=== PATIENT | female | born 1940 | race Caucasian/White ===

== ENCOUNTER 2019-06-21 06:35 | Inpatient (IN) | payer BC ==
[2019-06-13 15:46] VITALS: BMI 35.2
[~2019-06-21 06:35] MED LIST: VANCOMYCIN 1,000 MG VIAL (RESTRICTED TO ID ONLY) IVPB ONE
[2019-06-21] MEDS ORDERED: CEFAZOLIN 3 GM in DEXTROSE 5%-WATER - 50 ML IVPB ONE (07:22)
[2019-06-21] MEDS ORDERED: TRANEXAMIC ACID 1000 MG/10 ML VIAL IVPUSH ONE (07:22)
[2019-06-21] MEDS ORDERED: VANCOMYCIN 1,000 MG VIAL (RESTRICTED TO ID ONLY) ONE (07:23)
[2019-06-21] MEDS ORDERED: ceFAZolin SODIUM 1 GM VIAL ONE (07:23)
[2019-06-21] MEDS ORDERED: TRANEXAMIC ACID 1000 MG/10 ML VIAL ONE (07:56)
[2019-06-21] MEDS ORDERED: PROPOFOL 20 ML ONE (07:56)
[2019-06-21] MEDS ORDERED: MIDAZOLAM HCL 2 MG/2 ML SINGLE DOSE VIAL ONE ×2 (07:56→07:57)
[2019-06-21] MEDS ORDERED: BUPIVACAINE LIPOSOME/PF (EXPAREL) 266 MG/20 ML VIAL ONE (07:57)
[2019-06-21] MEDS ORDERED: SODIUM CHLORIDE 0.9% P/F 10 ML VIAL IJ ONE (07:58)
--- NOTE | 2019-06-21 08:03 | HP ---
[facility] - Chief Complaint Chief Complaint: left knee pain - Past Medical History Allergies/Adverse Reactions: Allergies Allergy/AdvReac Type Severity Reaction Status Date / Time aspirin Allergy Verified 08/28/14 06:47 Penicillins Allergy Verified 08/28/14 06:47 Sulfa (Sulfonamide Allergy Verified 08/28/14 06:47 Antibiotics) - Current Medications Current Medications: Home Medications Medication Instructions Recorded Calcium 500 mg PO DAILY 08/09/14 Cyanocobalamin (Vitamin B-12) 1,000 mcg PO DAILY 08/09/14 [Vitamin B-12] Levothyroxine [Synthroid -] 125 mcg PO DAILY 08/09/14 Losartan Potassium 100 mg PO DAILY 08/09/14 Multivitamins [Multivit ([facility] 1 tab PO DAILY 08/09/14 Formulary)] Pravastatin Sodium 10 mg PO HS 08/09/14 Salmeterol/Fluticasone [Advair 1 inh IH BID 08/09/14 500Mcg/50Mcg -] Sitagliptin Phosphate [Januvia] 100 mg PO DAILY 08/09/14 metFORMIN HCL [Glucophage] 1,000 mg PO BID 08/09/14 Cyclosporine [Restasis] 1 each OP DAILY 06/13/19 Ferrous Sulfate [Feosol] 325 mg PO HS 06/21/19 Satellite Physical Exam - Physical Examination Vital Signs: Vital Signs Period Temp Pulse Resp BP Sys/Jensen Pulse Ox Last 24 Hr 98 F 66 18 148/80 General Appearance: Well Nourished, Well Developed, Alert & Oriented x3 ENT: Clear Lung: Normal air movement Heart: Regular rate & rhythm Extremities: Other (left knee- + swelling, + ttp, decr rom, nvi, xrays show grade 4 tricompartmental djd) Neurological: Intact, Alert, Oriented Satellite Impression/Plan - Impression/Plan Impression: left knee djd Operative Procedure: left erick tkr Date to be Performed: 06/21/19
[2019-06-21] MEDS ORDERED: ceFAZolin SODIUM 1 GM VIAL IVPB ONE (09:35)
[2019-06-21] MEDS ORDERED: MAGNESIUM HYDROX 2400MG/30ML ORAL SUSPENSION 30 ML CUP PO PRN (09:42)
[2019-06-21] MEDS ORDERED: ONDANSETRON 4 MG/2 ML VIAL IVPUSH PRN ×2 (09:42→11:56)
[2019-06-21] MEDS ORDERED: MAG HYDROX/AL HYDROX/SIMETH 30 ML UNIT-DOSE CUP PO PRN (09:42)
[2019-06-21] MEDS ORDERED: LACTATED RINGERS SOLUTION 1,000 ML IV SCH ×2 (09:45→12:00)
[2019-06-21] MEDS ORDERED: PATIENT'S OWN MEDICATION (NON-FORMULARY) (Losartan Potassium [Losartan Potassium] 100 MG) PO SCH (10:00)
[2019-06-21] MEDS ORDERED: MULTIVITAMINS (DAILY MVI) TABLET (FP) PO SCH (10:00)
[2019-06-21] MEDS ORDERED: PATIENT'S OWN MEDICATION (NON-FORMULARY) (Salmeterol/Fluticasone [Advair 500mcg/50mcg -] 1 IH SCH (10:00)
[2019-06-21] MEDS ORDERED: ENOXAPARIN NA (PORCINE) 40 MG/0.4 ML DISP.SYRIN SQ SCH (10:00)
[2019-06-21] MEDS ORDERED: PATIENT'S OWN MEDICATION (NON-FORMULARY) (Metformin Hcl [Glucophage] 1,000 MG) PO SCH (10:00)
[2019-06-21] MEDS ORDERED: PATIENT'S OWN MEDICATION (NON-FORMULARY) (Cyclosporine [Restasis] 1 EACH) OP SCH (10:00)
[2019-06-21] MEDS ORDERED: VANCOMYCIN 1,000 MG VIAL (RESTRICTED TO ID ONLY) IVPB ONE (10:37)
[2019-06-21] MEDS ORDERED: oxyCODONE HCL 5 MG TABLET PO PRN (11:56)
[2019-06-21] MEDS ORDERED: ACETAMINOPHEN 1000 MG/100 ML VIAL (NON FORMULARY) IVPB ONE (11:57)
--- NOTE | 2019-06-21 12:35 | OP ---
Operative Note - Note: Operative Date: 06/21/19 (jc) Pre-Operative Diagnosis: left knee djd Operation: left erick tkr Post-Operative Diagnosis: Same as Pre-op Surgeon: Owen Rondon Knife Glazer: Dwayne Armas Anesthesiologist/HVAC ENGINEER: Freddie Castellano Anesthesia: Spinal, Local Specimens Removed: bone fragments Estimated Blood Loss (mls): 100 Operative Report Dictated: Yes
[2019-06-21] MEDS: INSULIN SLIDING SCALE (NOVOLOG) 1 VIAL SQ SCH ×4 (14:08→21:55)
[2019-06-21] MEDS: SENNOSIDES/DOCUSATE COMBO (SENNA PLUS) TABLET (UD) PO SCH ×2 (14:08→21:32)
[2019-06-21] MEDS: PANTOPRAZOLE 40 MG TABLET (FP) PO SCH (14:08)
[2019-06-21] MEDS: oxyCODONE HCL 5 MG TABLET PO PRN (14:25)
[2019-06-21] MEDS ORDERED: KETOROLAC TROMETHAMINE 30 MG/1 ML VIAL IVPUSH ONE (15:42)
[2019-06-21] MEDS ORDERED: HYDROmorphone HCL CARPU-JECT 1 MG/1 ML DISP.SYRIN IVPB ONE (15:42)
[2019-06-21] MEDS: metFORMIN HCL 500 MG TABLET (FP) PO SCH (16:56)
[2019-06-21] MEDS: ceFAZolin SODIUM 1 GM VIAL IVPB SCH (17:49)
[2019-06-21] MEDS ORDERED: CEFAZOLIN 3 GM in DEXTROSE 5%-WATER - 50 ML IVPB SCH (18:00)
--- NOTE | 2019-06-21 19:09 | SPEC ---
DATE OF OPERATION: 06/21/2019 PREOPERATIVE DIAGNOSIS: Degenerative joint disease, left knee. POSTOPERATIVE DIAGNOSIS: Degenerative joint disease, left knee. PROCEDURE: Left total knee replacement with robotic-assisted navigation (Makoplasty). SURGICAL ATTENDING: Owen Rondon MD CELL ATTENDANT: ESTELITA Noyola ANESTHESIA: Regional and spinal. CLOSURE: A Triathlon knee system cemented with a 4 femur, 4 tibia, 9 polyethylene, 35 patella, No. 1 Vicryl fascia, 0 and 2-0 subcutaneous, 3-0 Monocryl subcuticular with skin glue for skin, 4-0 undyed Vicryl for pin sites. ESTIMATED BLOOD LOSS: Less than 100 mL. COMPLICATIONS: None. CONDITION: To recovery room in stable condition. DESCRIPTION OF OPERATIVE PROCEDURE: Patient was taken to the operating room on June 21, 2019. Regional and general anesthesia was administered by the anesthesiologist. IV Kefzol and TXA were administered by the anesthesiologist. Well-padded pneumatic tourniquet was placed on the proximal thigh. The left lower extremity was prepped and draped in the usual sterile fashion. The leg was exsanguinated with an Esmarch bandage, and tourniquet was inflated to 275 mmHg. A 12- to 15-cm longitudinal midline incision was incised while centered over the patella. The dissection was carried down to the level of the extensor mechanism with sufficient flaps made to adequately perform the procedure. A medial parapatellar arthrotomy was then performed. We made a cuff of tissue on the patella for later closure. The patella was inverted, the knee was flexed up. The fat pad was excised. The subperiosteal dissection was on the anteromedial proximal tibia around towards the direction of the MCL. The ACL and the PCL were transected and debrided. The meniscal remnants of the medial and lateral meniscus were debrided and removed. This allowed the knee to be able to "be brought forward." The checkpoints were malleted into the tibia and into the femur. Two threaded pins were drilled anteroposteriorly proximal to the knee through the previous incision, through the anterior cortex, then just engaging the posterior cortex. To these pins was assembled the femoral navigation array. One handbreadth below the tibial tubercle, 2 stab incisions were used to drill 2 threaded pins in parallel fashion into the tibia, again through the anterior cortex and just engaging the posterior cortex. To these pins was fastened the tibial arrays. The knee was then registered with the navigation device with center of rotation of the hip, medial and lateral malleoli, both checkpoints, and multiple points on both the femur and the tibia to ensure excellent registration. The navigation device was directed off the "top of the bubbles" on both the femur and the tibia. The navigation passed within less than 0.5 mm to plan. The knee was then thoroughly inspected to remove all osteophytes both medially, laterally, and on the femur and the tibia, and whatever osteophytes were available for dissection. The knee was then taken to extension and to flexion and stressed in both varus and valgus to assess flexion gaps. The virtual position of the components on the navigation device were then manipulated to optimize the position and to ensure equal gaps in both flexion and extension, and both medially and laterally. The robot was then brought into the field and was registered. The cuts were then made both on the femur and on the tibia as to plan. All osteophytes posteriorly were then removed as well. The gaps were then measured again in flexion and extension to be equal in both flexion and extension and medial and laterally. The femoral notch was then made, as we were doing a posterior stabilizing component, with the appropriate sized box. Trial reduction of the femur achieved excellent [id number] fit. A tibial baseplate of appropriate polyethylene thickness was "floated in the knee." It was ensured to be in the excellent position by navigation devices and was pinned in place. The knee was taken through a range of motion and found to have excellent stability throughout flexion and extension. The patella was calibrated for thickness and osteotomized down to the appropriate level. The appropriate lollipop was used to drill the lug holes in the patella and the trial button was applied. The knee was taken through a range of motion and found to have excellent tracking of the patella, and patella from full extension to full flexion. Trial components were removed, the keel was punched and drilled, and a sclerotic bone on the tibia was drilled to help with cement interdigitation. The knee was thoroughly irrigated with the pulse antibiotic civil rights investigator. The real components were then cemented in using monitored arrangement cement techniques with antibiotic cement, and pressurization and extension. After the cement was hardened, the knee was thoroughly inspected to remove any extra cement. The real polyethylene component was then clipped into place. Range of motion, stability, and tracking were as described earlier. The checkpoints and the pins were removed. The knee was thoroughly irrigated with antibiotic irrigation. Vancomycin powder was placed into the knee for antibiotic prophylaxis. The medial parapatellar arthrotomy was then closed using number 1 Vicryl interrupted suture. After closure of the deep layer, the knee was taken through a range of motion, and found to have excellent stability of the patella with no dislocation and no undue tension on the repair. The subcutaneous was pulse antibiotic irrigated, and was then closed with 2-0 Vicryl, 3-0 Monocryl subcuticular with the skin glue for the skin. The distal tibial pin site was irrigated thoroughly as well and then closed with 4-0 undyed Vicryl. A sterile Aquacel dressing was applied, followed by a Leung dressing. Tourniquet was deflated. Total tourniquet time was approximately 75 minutes. No complications. Patient was awakened from anesthesia and transferred to recovery room in stable condition. Postoperative x-rays revealed excellent position of the components. Yeni [id number]
[2019-06-21] MEDS ORDERED: PT OWN MED DRAWER 7, Y5N ONE (21:07)
[2019-06-21] MEDS: oxyCODONE HCL 10 MG SUSTAINED ACTING TABLET PO SCH (21:31)
[2019-06-21] MEDS: ATORVASTATIN CA 10 MG TABLET (FP) PO SCH (21:31)
[2019-06-21] MEDS: FERROUS SO4 325 MG TABLET (FP) PO SCH (21:31)
[2019-06-21] MEDS: BUDESONIDE/FORMETEROL FUMARATE 160/4.5 mcg INHALER IH SCH (21:33)
[2019-06-21] MEDS ORDERED: INSULIN (NOVOLOG) ASPART 100 UNITS/ML 10ML VIAL ONE (21:52)
[2019-06-21] MEDS ORDERED: PATIENT'S OWN MEDICATION (NON-FORMULARY) (Pravastatin Sodium [Pravastatin Sodium] 10 MG) PO SCH (22:00)
[2019-06-22] MEDS: ceFAZolin SODIUM 1 GM VIAL IVPB SCH (01:28)
[2019-06-22] MEDS: oxyCODONE HCL 5 MG TABLET PO PRN ×4 (05:48→18:32)
[2019-06-22] MEDS: metFORMIN HCL 500 MG TABLET (FP) PO SCH ×2 (06:10→17:02)
[2019-06-22] MEDS: sitaGLIPtin PHOSPHATE 50 MG TABLET PO SCH (06:11)
[2019-06-22] MEDS: INSULIN SLIDING SCALE (NOVOLOG) 1 VIAL SQ SCH ×4 (06:11→21:40)
[2019-06-22] MEDS: LEVOTHYROXINE NA 125 MCG TABLET (FP) PO SCH (06:11)
[2019-06-22 07:25] LABS: HEMOGLOBIN 10.8 GM/dl (10.7-15.3); MCH 31.5 pg (25.7-33.7); MCHC 33.7 g/dl (32.0-36.0); MEAN CELL VOLUME 93.4 fl (80-96); MEAN PLT VOLUME 8.7 fl (7.5-11.1); PLATELET COUNT 176 K/MM3 (134-434); RBC 3.42 M/mm3 (3.60-5.2); RDW 13.9 % (11.6-15.6); WHITE BLOOD COUNT 6.7 K/mm3 (4.0-10.8)
--- NOTE | 2019-06-22 09:05 | PN ---
Progress Note (short form) - Note Progress Note: Ortho Pt seen and examined s/p left erick tkr pod #1 Selected Entries 06/22/19 06:00 Temperature 97.9 F Pulse Rate 76 Respiratory 18 Rate Blood Pressure 153/66 Laboratory Tests 06/22/19 07:06 WBC 6.7 Hgb 10.8 Hct 32.0 L Plt Count 176 dressing c/d/i, calf soft, nt rom 0-60, nvi a/p PT dvt ppx pain control d/c home tomorrow if stable
[2019-06-22] MEDS: ENOXAPARIN NA (PORCINE) 40 MG/0.4 ML DISP.SYRIN SQ SCH (09:28)
[2019-06-22] MEDS: oxyCODONE HCL 10 MG SUSTAINED ACTING TABLET PO SCH ×2 (09:28→21:38)
[2019-06-22] MEDS: LOSARTAN POTASSIUM 50 MG TABLET (FP) PO SCH (09:29)
[2019-06-22] MEDS: SENNOSIDES/DOCUSATE COMBO (SENNA PLUS) TABLET (UD) PO SCH ×2 (09:29→21:38)
[2019-06-22] MEDS: MULTIVITAMINS (DAILY MVI) TABLET (FP) PO SCH (09:31)
[2019-06-22] MEDS: PANTOPRAZOLE 40 MG TABLET (FP) PO SCH (09:31)
[2019-06-22] MEDS: BUDESONIDE/FORMETEROL FUMARATE 160/4.5 mcg INHALER IH SCH ×2 (09:32→22:22)
[2019-06-22] MEDS ORDERED: PT OWN MED DRAWER 7, Y5N ONE (09:36)
--- NOTE | 2019-06-22 09:37 | PN ---
Progress Note, Physician Chief Complaint: AWAKE ALERT POD#1 LEFT TKR/JOAQUÍN DENIES CHEST PAIN OR SOB BP ELEVATED THIS MORNING WILL REPEAT AFTER MEDS GIVEN IN 1 HOUR NO HEADACHE OR DIZZINESS - Current Medication List Current Medications: Active Medications Al Hydroxide/Mg Hydroxide (Mylanta Oral Suspension -) 30 ml PO Q4H PRN PRN Reason: DYSPEPSIA Atorvastatin Calcium (Lipitor -) 10 mg PO HS [facility] Last Admin: 06/21/19 21:31 Dose: 10 mg Budesonide/Formoterol Fumarate (Symbicort 160/4.5mcg -) 2 puff IH BID [facility] Last Admin: 06/21/19 21:33 Dose: 2 puff Enoxaparin Sodium (Lovenox -) 40 mg SQ DAILY [facility] Ferrous Sulfate (Feosol -) 325 mg PO HS [facility] Last Admin: 06/21/19 21:31 Dose: 325 mg Insulin Aspart (Novolog Vial Sliding Scale -) 1 vial SQ [facility]; Protocol Last Admin: 06/22/19 06:11 Dose: Not Given Levothyroxine Sodium (Synthroid -) 125 mcg PO ACBK [facility] Last Admin: 06/22/19 06:11 Dose: 125 mcg Losartan Potassium (Cozaar -) 100 mg PO DAILY [facility] Magnesium Hydroxide (Milk Of Magnesia -) 30 ml PO PRN PRN PRN Reason: CONSTIPATION Metformin HCl (Glucophage -) 1,000 mg PO BIDI [facility] Last Admin: 06/22/19 06:10 Dose: 1,000 mg Multivitamins/Minerals/Vitamin C (Tab-A-Vit -) 1 tab PO DAILY [facility] Non-Formulary Medication (Cyclosporine [Restasis]) 1 each OP DAILY [facility] Ondansetron HCl (Zofran Injection) 4 mg IVPUSH Q6H PRN PRN Reason: NAUSEA Oxycodone HCl (Roxicodone -) 10 mg PO Q4H PRN PRN Reason: PAIN LEVEL 6-10 Last Admin: 06/22/19 05:48 Dose: 10 mg Oxycodone HCl (Roxicodone -) 5 mg PO Q4H PRN PRN Reason: PAIN LEVEL 1-5 Oxycodone HCl (Oxycontin -) 10 mg PO BID [facility] Last Admin: 06/21/19 21:31 Dose: 10 mg Pantoprazole Sodium (Protonix -) 40 mg PO DAILY [facility] Last Admin: 06/21/19 14:08 Dose: Not Given Senna/Docusate Sodium (Pericolace -) 2 tablet PO BID [facility] Last Admin: 06/21/19 21:32 Dose: 2 tablet Sitagliptin Phosphate (Januvia -) 100 mg PO ACBK [facility] Last Admin: 06/22/19 06:11 Dose: 100 mg - Objective Vital Signs: Vital Signs Temperature 97.9 F 06/22/19 06:00 Pulse Rate 76 06/22/19 06:00 Respiratory Rate 18 06/22/19 06:00 Blood Pressure 153/66 06/22/19 06:00 O2 Sat by Pulse Oximetry (%) 99 06/22/19 08:55 Constitutional: Yes: Mild Distress Cardiovascular: Yes: Regular Rate and Rhythm Respiratory: Yes: WNL Gastrointestinal: Yes: WNL Genitourinary: Yes: WNL Musculoskeletal: Yes: Other Edema: LLE: 1+ Wound/Incision: Yes: Dressing Dry and Intact Neurological: Yes: WNL ...Motor Strength: LLE Psychiatric: Yes: WNL Labs: CBC, BMP 06/22/19 07:06 Problem List - Problems (1) Hypertension Code(s): I10 - ESSENTIAL (PRIMARY) HYPERTENSION (2) Total knee replacement status Code(s): Z96.659 - PRESENCE OF UNSPECIFIED ARTIFICIAL KNEE JOINT Assessment/Plan POD#1 LEFT TKR/JOAQUÍN PAIN CONTROLLED NO BOWEL MOVEMENT YET +URINE OUTPUT/VOIDING PT EVAL HOME AFTER ORTHOPEDIC CLEARANCE REPEAT BP IN 1 HOUR D/W NURSE TO CALL BACK WITH RESULT
--- NOTE | 2019-06-22 13:47 | PN ---
Progress Note (short form) - Note Progress Note: POD1 s/p left TKR under spinal and block. Pain we controlled, but a bit worse now that she has just ambulated with PT. Otherwise no other c/o
[2019-06-22] MEDS ORDERED: INSULIN (NOVOLOG) ASPART 100 UNITS/ML 10ML VIAL ONE (17:07)
[2019-06-22] MEDS: FERROUS SO4 325 MG TABLET (FP) PO SCH (21:38)
[2019-06-22] MEDS: ATORVASTATIN CA 10 MG TABLET (FP) PO SCH (21:38)
[2019-06-23] MEDS: oxyCODONE HCL 5 MG TABLET PO PRN (06:09)
[2019-06-23] MEDS: metFORMIN HCL 500 MG TABLET (FP) PO SCH (06:10)
[2019-06-23] MEDS: sitaGLIPtin PHOSPHATE 50 MG TABLET PO SCH (06:10)
[2019-06-23] MEDS: INSULIN SLIDING SCALE (NOVOLOG) 1 VIAL SQ SCH ×2 (06:11→11:55)
[2019-06-23] MEDS: LEVOTHYROXINE NA 125 MCG TABLET (FP) PO SCH (06:11)
[2019-06-23 08:12] LABS: HEMATOCRIT 31.1 % (32.4-45.2); HEMOGLOBIN 10.4 GM/dl (10.7-15.3); MCH 31.4 pg (25.7-33.7); MCHC 33.4 g/dl (32.0-36.0); MEAN CELL VOLUME 93.8 fl (80-96); MEAN PLT VOLUME 8.6 fl (7.5-11.1); PLATELET COUNT 179 K/MM3 (134-434); RBC 3.32 M/mm3 (3.60-5.2); RDW 13.8 % (11.6-15.6); WHITE BLOOD COUNT 9.5 K/mm3 (4.0-10.8)
[2019-06-23 08:18] LABS: CALCIUM 9.1 mg/dl (8.5-10); CREATININE 0.8 mg/dl (0.55-1.3); POTASSIUM 3.9 mmol/L (3.5-5.1)
--- NOTE | 2019-06-23 08:43 | PN ---
Progress Note (short form) - Note Progress Note: Ortho Pt seen and examined s/p left erick tkr pod #2 Selected Entries 06/23/19 06:24 Temperature 98.0 F Pulse Rate 98 H Respiratory 18 Rate Blood Pressure 141/63 Laboratory Tests 06/23/19 07:35 WBC 9.5 Hgb 10.4 L Hct 31.1 L Plt Count 179 dressing c/d/i, calf soft, nt rom 0-60, nvi a/p PT dvt ppx pain control d/c home today f/u in 1 week
--- NOTE | 2019-06-23 08:43 | DS ---
Physical Examination Vital Signs: Vital Signs Temperature 98.0 F 06/23/19 06:24 Pulse Rate 98 H 06/23/19 06:24 Respiratory Rate 18 06/23/19 06:24 Blood Pressure 141/63 06/23/19 06:24 O2 Sat by Pulse Oximetry (%) 98 06/23/19 06:24 Labs: CBC, BMP 06/23/19 07:35 06/23/19 07:35 Discharge Summary Reason For Visit: OSTEOARTHRITIS Current Active Problems Hypertension (Acute) Total knee replacement status (Acute) Procedures: Principal: s/p left erick tkr Hospital Course: admitted for elective right erick tkr, post-op as per protocol, stable for d/c Condition: Good - Instructions Diet, Activity, Other Instructions: Post-op Instructions-Total Knee Replacement Call the office for a follow-up appointment in 1 week - [phone] Aspirin 325mg daily for 6 weeks. Pain medication was sent into your pharmacy. Apply Graduated Compression Stockings (TEDs) to both lower extremities- remove daily for hygiene ONLY Apply Sequential Compression Device (SCDs) to both Lower extremities remove for PT and hygiene ONLY Apply cold packs to affected area for 15 minutes every 2 hours. Physical Therapist will come to your home for the first 5 days. You will be set up with outpatient PT at your first post-operative visit. Patient may ambulate as tolerated-encourage self care (at least every 2-3 hours while awake) with walker or cane Maintain Aquacel (waterproof) dressing to operative wound (will be removed by surgeon at first office visit) Shower with Aquacel dressing in place-if Aquacel integrity compromised, remove and apply dry sterile dressing and notify Orthopedist. DO NOT SHOWER unless Orthopedists approves without Aquacel dressing CONTACT THE OFFICE FOR ANY CHANGE IN YOUR CONDITION (for example-fever greater than 102 degrees, excessive bleeding from operative site, purulent drainage, severe swelling or pain) GO TO THE EMERGENCY ROOM IF THERE IS A MEDICAL EMERGENCY Knee Precautions: * Keep a rolled towel under affected heel while in bed or chair (to keep knee in extension) * Keep affected leg elevated except during mealtimes * DO NOT PLACE PILLOW UNDER AFFECTED KNEE * If you have any questions, please do not hesitate to call the office - [phone]. Referrals: Owen Rondon MD [Staff Physician] - Disposition: VNS/HOME HEALTH CARE - Home Medications Comprehensive Discharge Medication List: Ambulatory Orders Calcium 500 mg PO DAILY 08/09/14 Cyanocobalamin (Vitamin B-12) [Vitamin B-12] 1,000 mcg PO DAILY 08/09/14 Levothyroxine [Synthroid -] 125 mcg PO DAILY 08/09/14 Losartan Potassium 100 mg PO DAILY 08/09/14 Multivitamins [Multivit ([facility] Formulary)] 1 tab PO DAILY 08/09/14 Pravastatin Sodium 10 mg PO HS 08/09/14 Salmeterol/Fluticasone [Advair 500Mcg/50Mcg -] 1 inh IH BID 08/09/14 Sitagliptin Phosphate [Januvia] 100 mg PO DAILY 08/09/14 metFORMIN HCL [Glucophage] 1,000 mg PO BID 08/09/14 Cyclosporine [Restasis] 1 each OP DAILY 06/13/19 Ferrous Sulfate [Feosol] 325 mg PO HS 06/21/19 Enoxaparin [Lovenox -] 40 mg SQ DAILY #14 disp.syrin 06/23/19 Oxycodone HCl/Acetaminophen [Percocet 5-325 mg Tablet -] 1 - 2 tab PO Q6H #50 tab MDD 8 06/23/19
[2019-06-23] MEDS: oxyCODONE HCL 10 MG SUSTAINED ACTING TABLET PO SCH (09:03)
[2019-06-23] MEDS: ENOXAPARIN NA (PORCINE) 40 MG/0.4 ML DISP.SYRIN SQ SCH (09:03)
[2019-06-23] MEDS: LOSARTAN POTASSIUM 50 MG TABLET (FP) PO SCH (09:03)
[2019-06-23] MEDS: SENNOSIDES/DOCUSATE COMBO (SENNA PLUS) TABLET (UD) PO SCH (09:04)
[2019-06-23] MEDS: PANTOPRAZOLE 40 MG TABLET (FP) PO SCH (09:04)
[2019-06-23] MEDS: MULTIVITAMINS (DAILY MVI) TABLET (FP) PO SCH (09:05)
[2019-06-23] MEDS: BUDESONIDE/FORMETEROL FUMARATE 160/4.5 mcg INHALER IH SCH (10:00)
[2019-06-23 10:08] VITALS: TEMP 98.2
--- NOTE | 2019-06-23 10:37 | PN ---
Progress Note, Physician Chief Complaint: patient seen and examined in PT room - Current Medication List Current Medications: Active Medications Al Hydroxide/Mg Hydroxide (Mylanta Oral Suspension -) 30 ml PO Q4H PRN PRN Reason: DYSPEPSIA Atorvastatin Calcium (Lipitor -) 10 mg PO HS [facility] Last Admin: 06/22/19 21:38 Dose: 10 mg Budesonide/Formoterol Fumarate (Symbicort 160/4.5mcg -) 2 puff IH BID [facility] Last Admin: 06/23/19 10:00 Dose: 2 puff Enoxaparin Sodium (Lovenox -) 40 mg SQ DAILY [facility] Last Admin: 06/23/19 09:03 Dose: 40 mg Ferrous Sulfate (Feosol -) 325 mg PO [facility] Last Admin: 06/22/19 21:38 Dose: 325 mg Insulin Aspart (Novolog Vial Sliding Scale -) 1 vial SQ [facility]; Protocol Last Admin: 06/23/19 06:11 Dose: Not Given Levothyroxine Sodium (Synthroid -) 125 mcg PO ACBK [facility] Last Admin: 06/23/19 06:11 Dose: 125 mcg Losartan Potassium (Cozaar -) 100 mg PO DAILY [facility] Last Admin: 06/23/19 09:03 Dose: 100 mg Magnesium Hydroxide (Milk Of Magnesia -) 30 ml PO PRN PRN PRN Reason: CONSTIPATION Metformin HCl (Glucophage -) 1,000 mg PO BIDI [facility] Last Admin: 06/23/19 06:10 Dose: 1,000 mg Multivitamins/Minerals/Vitamin C (Tab-A-Vit -) 1 tab PO DAILY [facility] Last Admin: 06/23/19 09:05 Dose: 1 tab Non-Formulary Medication (Cyclosporine [Restasis]) 1 each OP DAILY [facility] Ondansetron HCl (Zofran Injection) 4 mg IVPUSH Q6H PRN PRN Reason: NAUSEA Oxycodone HCl (Roxicodone -) 10 mg PO Q4H PRN PRN Reason: PAIN LEVEL 6-10 Last Admin: 06/23/19 06:09 Dose: 10 mg Oxycodone HCl (Roxicodone -) 5 mg PO Q4H PRN PRN Reason: PAIN LEVEL 1-5 Last Admin: 06/23/19 09:05 Dose: 5 mg Oxycodone HCl (Oxycontin -) 10 mg PO BID [facility] Last Admin: 06/23/19 09:03 Dose: 10 mg Pantoprazole Sodium (Protonix -) 40 mg PO DAILY [facility] Last Admin: 06/23/19 09:04 Dose: 40 mg Senna/Docusate Sodium (Pericolace -) 2 tablet PO BID [facility] Last Admin: 06/23/19 09:04 Dose: 2 tablet Sitagliptin Phosphate (Januvia -) 100 mg PO ACBK [facility] Last Admin: 06/23/19 06:10 Dose: 100 mg - Objective Vital Signs: Vital Signs Temperature 98.2 F 06/23/19 10:07 Pulse Rate 115 H 06/23/19 10:07 Respiratory Rate 18 06/23/19 10:07 Blood Pressure 169/54 L 06/23/19 10:07 O2 Sat by Pulse Oximetry (%) 98 06/23/19 10:07 Constitutional: Yes: Calm Cardiovascular: Yes: Regular Rate and Rhythm, S1, S2 Respiratory: Yes: CTA Bilaterally Gastrointestinal: Yes: Normal Bowel Sounds, Soft Extremities: Yes: Other (left knee swelling aquacel dressing stockings on legs) Edema: Yes Labs: CBC, BMP 06/23/19 07:35 06/23/19 07:35 Problem List - Problems (1) Hypertension Assessment/Plan: losartan Code(s): I10 - ESSENTIAL (PRIMARY) HYPERTENSION (2) Total knee replacement status Assessment/Plan: asprin 325mg po daily for 6 weeks FU with ortho in one week Code(s): Z96.659 - PRESENCE OF UNSPECIFIED ARTIFICIAL KNEE JOINT (3) Hypothyroid Assessment/Plan: synthroid Code(s): E03.9 - HYPOTHYROIDISM, UNSPECIFIED (4) Diabetes Assessment/Plan: metformin and januvia Code(s): E11.9 - TYPE 2 DIABETES MELLITUS WITHOUT COMPLICATIONS Qualifiers: Diabetes mellitus type: type 2
[2019-06-23 11:43] VITALS: BP 152/70
[2019-06-23 11:47] VITALS: PULSE 98
--- NOTE | 2019-06-30 09:13 | PATH ---
Surgical Pathology Report Patient Name: OBIE LENZ Med. Rec. #: [id number] /Age/Gender: 1940 (Age: 79) / F Account: [id number] Location: [facility] Taken: 06/21/2019 Received: 06/21/2019 Reported: 06/30/2019 Physicians: Owen Rondon M.D. Specimen(s) Received LEFT KNEE BONES Clinical History Osteoarthritis, left knee Final Diagnosis KNEE BONES, LEFT, TOTAL KNEE REPLACEMENT: DEGENERATIVE JOINT DISEASE. Electronically Signed Lydia Dinh M.D. Gross Description Received in formalin, labeled "left knee bones" is a 10.2 x 9.5 x 2.3 cm aggregate of multiple portions of bone and soft tissue. The tibial plateau measures 8.2 x 5 3 x 1 cm. The articular surfaces show areas of eburnation and appear granular. The underlying trabecular bone is yellow and hard. Atm Mechanic sections are submitted, following decalcification.
== END 2019-06-23 12:54 | disposition home health service (06) | DRG 470 ==
LOC: FM/S 06:35
PROVIDERS: ADMIT Orthopaedic Surgery; ATTEND Orthopaedic Surgery
PROC: 8E0Y0CZ Robotic Assisted Procedure of Lower Extremity, Open Approach (ICD-10-PCS; 2019-06-21)
PROC: 0SRD069 Replacement of Left Knee Joint with Oxidized Zirconium on Polyethylene Synthetic Substitute, Cemented, Open Approach (ICD-10-PCS; principal; 2019-06-21 09:00)
DX: M17.12 Unilateral primary osteoarthritis, left knee (principal); I10 Essential (primary) hypertension; E03.9 Hypothyroidism, unspecified; E11.9 Type 2 diabetes mellitus without complications
CPT/HCPCS: 36415; 73560-TC-LT-FY; 80048; 82962; 85027; 88304-TC; 88311-TC; 94760; 97116-GP; 97163-GP; J0131

== ENCOUNTER 2021-03-07 04:23 | Day surgery (SDC) | payer BC ==
[2021-02-25 16:14] VITALS: BMI 33.5
[2021-03-07] MEDS ORDERED: MIDAZOLAM HCL 2 MG/2 ML SINGLE DOSE VIAL ONE ×2 (07:59)
[2021-03-07] MEDS ORDERED: ROPIVACAINE HCL 0.5% 30ML VIAL ONE (07:59)
[2021-03-07] MEDS ORDERED: LIDOCAINE HCL/PF 2% SDV 5ML VIAL ONE (08:07)
[2021-03-07] MEDS ORDERED: PROPOFOL 20 ML ONE ×4 (08:08→10:30)
[2021-03-07] MEDS ORDERED: ceFAZolin SODIUM 1 GM VIAL IVPB ONE (09:24)
[2021-03-07] MEDS ORDERED: ceFAZolin SODIUM 1 GM VIAL ONE (09:37)
[2021-03-07] MEDS ORDERED: ONDANSETRON 4 MG/2 ML VIAL ONE ×2 (09:51)
[2021-03-07] MEDS ORDERED: DEXAMETHASONE SOD PHOSPHATE 4 MG/1 ML VIAL ONE ×2 (09:51)
[2021-03-07] MEDS ORDERED: oxyCODONE HCL 5 MG TABLET PO PRN ×2 (10:29)
[2021-03-07] MEDS ORDERED: ONDANSETRON 4 MG/2 ML VIAL IVPUSH PRN (10:29)
[2021-03-07] MEDS ORDERED: LACTATED RINGERS SOLUTION 1,000 ML IV SCH (10:30)
[2021-03-07 13:27] VITALS: TEMP 97.6
[2021-03-07 13:38] VITALS: BP 124/51; PULSE 70
== END 2021-03-07 13:40 | disposition home or self-care (01) ==
LOC: JASU-SURG 04:23
PROVIDERS: ATTEND Orthopaedic Surgery
PROC: 0RBK4ZZ Excision of Left Shoulder Joint, Percutaneous Endoscopic Approach (ICD-10-PCS; 2021-03-07)
PROC: 0RNK4ZZ Release Left Shoulder Joint, Percutaneous Endoscopic Approach (ICD-10-PCS; 2021-03-07)
PROC: 0LQ24ZZ Repair Left Shoulder Tendon, Percutaneous Endoscopic Approach (ICD-10-PCS; principal; 2021-03-07 09:00)
PROC: 0PBB4ZZ Excision of Left Clavicle, Percutaneous Endoscopic Approach (ICD-10-PCS; 2021-03-07 09:00)
DX: M75.42 Impingement syndrome of left shoulder (principal); M65.9 Synovitis and tenosynovitis, unspecified; M75.102 Unspecified rotator cuff tear or rupture of left shoulder, not specified as traumatic; I10 Essential (primary) hypertension; E11.9 Type 2 diabetes mellitus without complications
CPT/HCPCS: 82962; 88304-TC; 94760